=== PATIENT | male | born 1970 | race African-American/Black ===

== ENCOUNTER 2019-06-22 06:26 | Observation (INO) | payer BC ==
[2019-06-22] MEDS ORDERED: Nitroglycerin 0.4 MG TAB 1 EACH ONE (07:00)
[2019-06-22] MEDS ORDERED: Aspirin Chewable 81 MG TAB ONE (07:00)
[2019-06-22 07:01] LABS: #Basophils 0.1 thou/uL (0.0-0.2); #Eosinphils 0.2 thou/uL (0.0-0.7); #Lymphocytes 2.6 thou/uL (1.20-3.40); #Monocytes 0.5 thou/uL (0.11-0.59); %Basophils 0.8 % (0.0-1.0); %Eosinophils 2.6 % (0.0-10.0); %Lymphocytes 27.4 % (21.0-51.0); %Monocytes 5.1 % (0.0-10.0); %Neutrophils 64.1 % (42.0-75.0); Hemoglobin 15.1 g/dL (14.0-18.0); Mean Corpuscular HGB CONC 31.5 g/dL (32.0-36.0); Mean Corpuscular Hemoglobin 27.7 pg (27.0-31.0); Mean Platelet Volume 8.8 fL (7.4-10.4); Platelet Count 231 thou/uL (130-400); RBC Distribution Width 13.2 % (11.5-14.5); Red Blood Cell (RBC) Count 5.45 mill/uL (4.70-6.10); White Blood Cell (WBC) Count 9.4 thou/uL (4.8-10.8)
[2019-06-22 07:26] LABS: ALT (SGPT) 22 U/L (8-55); AST (SGOT) 22 U/L (5-34); Albumin 4.3 g/dL (3.5-5.0); Alkaline Phosphatase 64 U/L (40-150); Anion Gap 13 mmol/L (10-20); BUN (Urea Nitrogen) 10 mg/dL (8.9-20.6); Bilirubin, Total 0.7 mg/dL (0.2-1.2); Calc. Creatinine Clearance 0 mL/min (70-130); Calcium 9.8 mg/dL (7.8-10.44); Carbon Dioxide 26 mmol/L (22-29); Chloride 104 mmol/L (98-107); Estimated GFR-MDRD Greater than 90; Globulin 2.6 g/dL (2.4-3.5); Glucose 98 mg/dL (70-105); Lipase 10 U/L (8-78); Potassium 4.2 mmol/L (3.5-5.1); Protein, Total 6.9 g/dL (6.0-8.3); Sodium 139 mmol/L (136-145)
--- NOTE | 2019-06-22 07:37 | RAD ---
EXAM: Single view of the chest HISTORY: Chest pain and lightheadedness COMPARISON: 07/31/2015 FINDINGS: Single view of the chest shows a normal sized cardiomediastinal silhouette. There is no wanda dence of consolidation, mass, or pleural effusion. Degenerative changes are seen in the spine. IMPRESSION: No evidence of acute cardiopulmonary disease
--- NOTE | 2019-06-22 10:18 | CT ---
EXAM: CT brain without contrast HISTORY: Chest tightness and discomfort. Lightheadedness. COMPARISON: 07/31/2015 TECHNIQUE: Multiple contiguous axial images were obtained and a CT of the brain without contrast. FINDINGS: The brain is normal in morphology and attenuation without focal lesions or confluent areas of infarction. There is no evidence of hydrocephalus, intracranial hemorrhage, or extra-axial fluid collection. The calvarium and overlying soft tissues are unremarkable. The visualized paranasal sinuses and masto id air cells are well aerated. IMPRESSION: No evidence of acute intracranial abnormality
[2019-06-22 10:29] LABS: Troponin I Less than 0.010 ng/mL (< 0.028)
--- NOTE | 2019-06-22 12:20 | HP ---
HISTORY OF PRESENT ILLNESS: This is a 49-year-old black male with history of hypertension, who has been noncompliant. I last saw the patient in 2014 with hypertension, uncontrolled and has had several no shows during that time. Again, he was last seen in 2014. He presents to the ER with substernal chest pain. He states that he has had a cough for the past few months. He was on his way to work at 3:00 a.m. this morning and he developed chest pain, was not feeling well. He did not complain of any nausea, vomiting, or diaphoresis. He came to the emergency room. He was given nitroglycerin and his chest pain resolved. His cardiac workup in the ER was unremarkable. PAST MEDICAL HISTORY: History of chronic back pain, hypertension, history of a positive RPR, treated with penicillin. PAST SURGICAL HISTORY: Include a negative cardiac catheterization in 2009, negative stress test in 2013. FAMILY HISTORY: Father with diabetes. Mother with diabetes and heart disease. He has several siblings with heart disease. SOCIAL HISTORY: He is a nonsmoker. He works, I believe, at [employer]. MEDICATIONS: None. REVIEW OF SYSTEMS: As above. ALLERGIES: NONE. PHYSICAL EXAMINATION: VITAL SIGNS: Blood pressure 110/70. On admission, the blood pressure was elevated. GENERAL: No acute distress. HEENT: Clear. NECK: Supple. HEART: Regular rate and rhythm without murmur. LUNGS: Clear. ABDOMEN: Soft. EXTREMITIES: With no edema. LABORATORY DATA: White count 9.4, H and H of 15 and 47, and platelets 231,000. Sodium 139, potassium 4.2. Troponin one less than 0.010. ASSESSMENT: 1. Chest pain, rule out myocardial infarction. The patient does have a long history of hypertension, untreated. His last office visit in 2014 showed an elevated blood pressure. 2. Chest wall pain. The patient is markedly tender over the left costochondral area. 3. Chronic cough, possible bronchitis. Chest x-ray is negative. 4. Noncompliance. PLAN: 1. Admit. 2. Treadmill stress test and echo. 3. Serial cardiac enzymes. 4. Discussed the importance of close followup. ADDENDUM: I was just called from the ER, the patient had a possible near syncopal episode with an exacerbation of chest pain. We will consult Cardiology at this time. Job ID: [id number]
[2019-06-22 12:34] VITALS: BMI 32.1
[2019-06-22 13:21] LABS: Troponin I Less than 0.010 ng/mL (< 0.028)
[2019-06-22] MEDS: Nitroglycerin 2% Ointment 1 INCH/1 GM Packet TOP SCH ×2 (14:19→21:21)
[2019-06-22] MEDS: Enoxaparin Sodium 100 MG/ML SYRINGE SC SCH (14:22)
[2019-06-22] MEDS: Carvedilol 3.125 MG TAB PO SCH (16:10)
--- NOTE | 2019-06-22 19:57 | CON ---
DATE OF CONSULTATION: 06/22/2019 INDICATION FOR CONSULTATION: A 49-year-old gentleman with syncopal episode and chest pain. HISTORY OF PRESENT ILLNESS: This is a very pleasant 49-year-old gentleman, who underwent a cardiac catheterization apparently in 2010, did not have any significant coronary artery disease at that time and was also told that he might need a pacemaker. He was on his way to work this morning when he had a syncopal episode in his truck. He then woke up and not realized that he even had a syncopal episode , talked to his friend, wanted to go to work anyway, but was advised to go to the emergency room. He did complain of some chest discomfort and he said he had some left shoulder discomfort, became nauseated, and had some shortness of breath. His cardiac enzymes are negative. EKG is unremarkable for any evidence of significant ischemia, but he does have episodes on the telemetry of a Wenckebach phenomenon with non-conducted P waves of more than 2 seconds, but with his associated syncope this morning, this appears to be a somewhat more significant degree of AV block. His chest discomfort has essentially resolved. He does have some mild discomfort of the left chest area, which may be associated with the fall that he had this morning. Enzymes are negative as noted above. PAST MEDICAL HISTORY: Significant for some depression, anxiety, hypertension, and chronic back pain. He has a positive RPR, which was treated with insulin. He has degenerative joint disease associated in the back area. He has had a cyst on the spine. SOCIAL HISTORY: He said he is a . He has no children. He has occasional marijuana use. He has no significant alcohol use. At this time, he said he did drink a six pack a day, but stopped about 3 months ago. 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 MEDICATIONS: At this time include aspirin, Coreg, Lovenox, and nitroglycerin. Prior to admission, he was not taking any significant medications. ALLERGIES: NONE. REVIEW OF SYSTEMS: He wears glasses. Otherwise, 12-point review of systems is unremarkable except for the occasional cough. He has had the back pain as noted above and some history of anxiety. Otherwise, 12-point review of systems is unremarkable. PHYSICAL EXAMINATION: GENERAL: Reveals a well-developed and well-nourished gentleman. VITAL SIGNS: Blood pressure 122/71, heart rate is 60 and regular with occasional second-degree AV heart block type 1. He is afebrile. Respiratory rate is 18. HEENT: Shows head to be normocephalic and atraumatic. Carotid pulses are present. There are no bruits. CHEST: Clear to auscultation without rales, rhonchi, or wheezing. CARDIOVASCULAR: Exam reveals a regular rate and rhythm at this time with normal S1 and S2. There is no S3 or S4. There were no significant murmurs, heaves, thrills, bruits, or rubs. ABDOMEN: Soft and nontender. Positive bowel sounds are present. EXTREMITIES: Showed no clubbing, cyanosis, or edema. Pedal pulses are present. NEUROLOGIC: The patient appears to be intact at this time. DIAGNOSTIC DATA: EKG shows a normal sinus rhythm with no acute changes. Occasional episodes of secondary heart block type 1 with some associated bradycardia. LABORATORY DATA: Shows a potassium of 4.2, BUN is 10, and creatinine 0.89. WBC of 9.4, hemoglobin 15.1, and platelet count 231,000. Cardiac enzymes are negative. IMPRESSION: This gentleman, who has a history of hypertension and has also had an episode of syncope, has symptomatic second-degree heart block type 1 with associated syncope. We will advise him to undergo pacemaker insertion. He can undergo stress testing. I believe he has had some further workup in the past. He had a stress test in 2012, which did not show any evidence of ischemia. Ejection fraction was estimated at 71%. At this time, I would advise him to proceed with a pacemaker insertion to prevent further episodes of syncope. I explained to the patient the procedure and the risks to include bleeding, infection, possibility of pneumothorax, hemothorax, and pericardial tamponade and he has agreed to proceed with the procedure. We will plan for that today depending whether his last dose of Lovenox was given, I believe his last dose was he had a full dose at 9 o'clock this morning. We may need to wait until tomorrow morning for pacemaker insertion. As far as issues with his hypertension, that is stable at this time. Job ID: [id number] [facility]
[2019-06-23] MEDS: Nitroglycerin 2% Ointment 1 INCH/1 GM Packet TOP SCH ×3 (05:40→21:29)
[2019-06-23 05:50] LABS: Cardiac Risk 4.9 (Less than 4.5)
[2019-06-23] MEDS ORDERED: CEFAZOLIN 1 GM VIAL ONE (07:17)
[2019-06-23] MEDS ORDERED: Gentamicin 80 MG/2 ML VIAL ONE (07:17)
--- NOTE | 2019-06-23 07:33 | CON ---
DATE OF CONSULTATION: 06/23/2019 SUBJECTIVE: No complaints of further chest pain. He is feeling better this morning. OBJECTIVE: VITAL SIGNS: Temperature 98.6, pulse 62, respirations 14, pulse ox 99, blood pressure 121/73. HEART: Regular rate and rhythm. LUNGS: Clear. ABDOMEN: Soft. EXTREMITIES: No edema. LABORATORY DATA: Troponin less than 0.010 x3. Cholesterol 178, triglycerides 137, ratio 4.9. ASSESSMENT: 1. 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 2. Chest pain with probable syncope. 3. Noncompliance. 4. Hypertension. 5. Chronic cough, appears somewhat improved since the patient's hospitalization. We will continue to follow. PLAN: 1. Pacemaker placement for today. 2. Stress test per Dr. Voss. 3. We will continue to follow up. 4. Discussed importance of compliance in better blood pressure control. Job ID: [id number]
[2019-06-23] MEDS ORDERED: Midazolam HCl 2 mg/2 ml Vial ONE (08:38)
--- NOTE | 2019-06-23 09:41 | PDOC.CTH ---
Cardiology Progress Note - Subjective Pt. seen and eval. this AM. No c/o's. Still some episodes of 2 AV block type I. Bradycardia. Likely cause of syncope. - Objective Vital Signs Temp Pulse Resp BP Pulse Ox 06/23/19 07:30 98.1 F 72 20 146/74 H 99 06/23/19 05:51 98.6 F 62 14 121/73 99 06/22/19 23:24 98.2 F 68 15 111/76 97 Weight 199 lb 3 oz 06/22/19 06/23/19 06/24/19 06:59 06:59 06:59 Intake Total 1060 Output Total 400 Balance 660 - Physical Examination General/Neuro: alert & oriented x3 Neck: carotid US brisk, no JVD present Lungs: CTA Heart: RRR Abdomen: NT/ND, soft - Labs Result Diagrams: 06/22/19 06:52 06/22/19 06:53 Troponin/CKMB Troponin I Less than 0.010 ng/mL (< 0.028) 06/22/19 12:47 - Assessment/Plan 1. Syncope. Likely due to symptomatic bradycardia associated with 2AVB type I. Indication for pacemaker with this level of AV conduction abnormality and symptoms. I have discussed the procedure and risks. Plan for pacemaker insertion this AM. 2. HTN. Continue present meds. Echo: normal EF.
[2019-06-23] MEDS: Enoxaparin Sodium 100 MG/ML SYRINGE SC SCH ×2 (09:49→21:30)
[2019-06-23] MEDS: Carvedilol 3.125 MG TAB PO SCH ×2 (10:56→17:42)
[2019-06-23] MEDS: Aspirin 325 mg Enteric Coated Tablet PO SCH (10:56)
[2019-06-23] MEDS ORDERED: Iopamidol 370 76% 50 ML VIAL FS ONE (13:27)
--- NOTE | 2019-06-23 13:27 | RAD ---
SINGLE VIEW CHEST: Date: 06/23/19 COMPARISON: 06/22/19. HISTORY: Status post pacemaker placement. FINDINGS: Single view of the chest shows a normal sized cardiomediastinal silhouette. There is a left subclavia n pacemaker with its leads in the right atrium and ventricle. No pneumothorax is seen. There is no ev idence of consolidation, mass, or pleural effusion. IMPRESSION: Status post pacemaker placement without evidence of complication. POS: CET
--- NOTE | 2019-06-23 15:29 | EKG ---
Test Reason : POST PACEMAKER INSER Blood Pressure : / mmHG Vent. Rate : 068 BPM Atrial Rate : 068 BPM P-R Int : 216 ms QRS Dur : 078 ms QT Int : 364 ms P-R-T Axes : 040 002 011 degrees QTc Int : 387 ms Sinus rhythm with 1st degree A-V block ST elevation, consider early repolarization, pericarditis, or injury Nonspecific ST and T wave abnormality Abnormal ECG When compared with ECG of 22-JUN-2019 09:37, (Unconfirmed) Sinus rhythm is no longer with 2nd degree A-V block (Mobitz I) Confirmed by CECILIA PARRA, DR. Davis ([id number]) on 06/23/2019 3:28:58 PM Referred By: GEO Confirmed By:DR. Susan BROOKS MD
[2019-06-23] MEDS ORDERED: Losartan 25 MG TAB PO SCH (17:30)
[2019-06-24] MEDS: Nitroglycerin 2% Ointment 1 INCH/1 GM Packet TOP SCH (05:59)
[2019-06-24 08:24] VITALS: TEMP 98.3
[2019-06-24] MEDS: Carvedilol 3.125 MG TAB PO SCH (08:34)
[2019-06-24] MEDS: Aspirin 325 mg Enteric Coated Tablet PO SCH (08:34)
[2019-06-24] MEDS: Enoxaparin Sodium 100 MG/ML SYRINGE SC SCH (08:35)
[2019-06-24] MEDS ORDERED: Losartan 25 MG TAB PO SCH (09:00)
[2019-06-24 10:29] VITALS: BP 142/78
--- NOTE | 2019-06-24 14:37 | DIS ---
DATE OF ADMISSION: 06/22/2019 DATE OF DISCHARGE: 06/24/2019 DISCHARGE DIAGNOSES: 1. Chest pain with syncope. 2. Secondary atrioventricular block, type 1, consistent with Wenckebach. 3. Noncompliance. 4. Uncontrolled hypertension. 5. Chronic cough. DISCHARGE MEDICATIONS: 1. Levaquin 50 one p.o. daily, #10. 2. Losartan 510 one p.o. q.a.m., #30, two refills. 3. Coreg 3.125 one p.o. b.i.d., #60, two refills. BRIEF HISTORY: This is a 49-year-old black male with a long history of hypertension, untreated. He was last seen in the office in 2014. He presented with substernal chest pain to the ER. There was a question of him possibly passing out earlier that morning of admission. He also states he has had a cough for the past several months. He did not report any nausea, vomiting, or diaphoresis. He was given nitroglycerin in the ER with resolution of his chest pain. HOSPITAL COURSE: His heart was monitored over several days. Wenckebach type I block was noted. Dr. Voss was consulted. A pacemaker was placed. The patient has done well. His blood pressure has been rising somewhat high. He was started on Coreg and losartan and his blood pressure is markedly improved. He still has his cough, for which he will be given Levaquin to treat for possible community-acquired pneumonia. He is to follow up with Dr. Stone in 1 week, with myself in 1 week. We have talked at length about compliance with medications and poor prognosis. He does not control his blood pressure. We will continue to follow. He may need an outpatient stress test. Job ID: [id number]
--- NOTE | 2019-06-24 18:32 | CCL ---
CARDIOLOGY PROCEDURE NOTE: PROCEDURE: Dual chamber pacemaker insertion. INDICATION FOR PROCEDURE: 49-year-old gentleman with episode of syncope. He was found to have second degree heart block Type I with significant bradycardia, most likely associated with the syncope. Also had dizziness with the br adycardia. He was advised to undergo dual chamber pacemaker insertion. DETAILS: The patient was taken to the cardiac catheter lab, where he was prepped and draped in the sterile fas hion. Using a left subclavian approach, the pacemaker was easily inserted without difficulties or com plications. The full dictated note is in the chart. He was implanted with a Medtronic dual chamber pa cemaker, Vero MRI-compatible device, with two screw-in leads, one in the atrium and one in the ventr icle. Pacemaker was set with upper rate at 120 and lower rate at 60. There were no difficulties or co mplications encountered. Please review the dictated note.
== END 2019-06-24 09:41 | disposition home or self-care (01) ==
LOC: ERS 06:26 → 2SW 12:30
PROVIDERS: ADMIT Family Medicine; ATTEND Family Medicine
PROC: 0JH606Z Insertion of Pacemaker, Dual Chamber into Chest Subcutaneous Tissue and Fascia, Open Approach (ICD-10-PCS; principal; 2019-06-22)
DX: R55 Syncope and collapse (principal); R07.2 Precordial pain; I44.1 Atrioventricular block, second degree; I10 Essential (primary) hypertension; Z79.899 Other long term (current) drug therapy; Z91.19 Patient's noncompliance with other medical treatment and regimen
CPT/HCPCS: 33208; 36005; 36415; 70450; 71045; 75820; 80053; 80061; 83690; 84484; 85025; 93005; 93010; 93306; 93798; 94760; 96372; 99152; 99153; C1785; C1898; G0378; J0690; J1580; J1650; J2250; Q9967

== ENCOUNTER 2020-12-08 08:41 | Observation (INO) | payer SELFPAY ==
--- NOTE | 2020-12-08 09:09 | RAD ---
Portable frontal chest radiograph: 12/08/2020 COMPARISON: 06/23/2019 HISTORY: Chest pain, pacemaker malfunction FINDINGS: Stable left dual-lead transvenous pacing device. Heart and mediastinal contours are stable. No pneumothorax or pleural fluid is seen. There is no focal consolidation or alveolar edema. IMPRESSION: No acute findings.
[2020-12-08 09:12] LABS: #Basophils 0.1 thou/uL (0.0-0.2); #Eosinphils 0.3 thou/uL (0.0-0.7); #Lymphocytes 2.4 thou/uL (1.20-3.40); #Monocytes 0.5 thou/uL (0.11-0.59); %Basophils 1.8 % (0.0-1.0); %Eosinophils 3.9 % (0.0-10.0); %Lymphocytes 28.5 % (21.0-51.0); %Monocytes 5.8 % (0.0-10.0); %Neutrophils 60.1 % (42.0-75.0); Hemoglobin 14.8 g/dL (14.0-18.0); Mean Corpuscular HGB CONC 31.7 g/dL (32.0-36.0); Mean Corpuscular Volume 88.3 fL (78.0-98.0); Mean Platelet Volume 8.8 fL (7.4-10.4); Platelet Count 230 thou/uL (130-400); RBC Distribution Width 13.2 % (11.5-14.5); White Blood Cell (WBC) Count 8.3 thou/uL (4.8-10.8)
[2020-12-08 09:36] LABS: ALT (SGPT) 22 U/L (8-55); AST (SGOT) 22 U/L (5-34); Albumin 4.3 g/dL (3.5-5.0); Alkaline Phosphatase 66 U/L (40-110); Anion Gap 11 mmol/L (10-20); BUN (Urea Nitrogen) 10 mg/dL (8.9-20.6); Bilirubin, Total 0.2 mg/dL (0.2-1.2); CK (CPK) 291 U/L (30-200); Calc. Creatinine Clearance 0 mL/min (70-130); Calcium 9.3 mg/dL (7.8-10.44); Carbon Dioxide 31 mmol/L (22-29); Chloride 101 mmol/L (98-107); Globulin 3.1 g/dL (2.4-3.5); Glucose 130 mg/dL (70-105); Protein, Total 7.4 g/dL (6.0-8.3); Sodium 139 mmol/L (136-145)
--- NOTE | 2020-12-08 12:32 | HP ---
PRIMARY CARE PHYSICIAN: Kristopher Spencer MD CHIEF COMPLAINT: "My pacemaker alarm went off and I'm having chest pain." HISTORY OF PRESENT ILLNESS: Mr. Hunter is a pleasant 50-year-old gentleman, who has a history of hypertension. He also has history of having a syncopal episode, which led to him having a pacemaker placed. He was in his usual state of health until recently. He says in the last 3 to 4 weeks he has been having pain in his chest off and on. He describes it as tightness, which is more or less in the center to left side of his chest. He says it can happen either at rest or on exertion. He rates it about a 5/10 and says that it happened again this morning and has been actually present since 4:00 a.m. this morning and he notes some numbness in his left arm as well. He also notes that when he walks, he gets some shortness of breath as well. He also notes that he has been getting short of breath at night and at times will wake up gasping. Lately, he is having to sleep in a chair and says that if he tries to lay flat. He says that he is choking. He also notes some palpitations off and on as well and also this morning, he noted that his pacemaker alarm went off and he is not really sure what that alarm meant. But given these symptoms, he felt he should come to the ER for evaluation. He was seen in the ER and he had a chest x-ray done, which was essentially unremarkable as well as an EKG, which showed some nonspecific changes, but given his previous history, he is being placed in observation for further evaluation. The patient also denies any cough or congestion. He denies any reflux symptoms. He has not been on any long trips. He notes some numbness in his left leg and says that his left leg is at time weak, but he attributes that to back problems and this has been present for some time. REVIEW OF SYSTEMS: All systems were reviewed and are negative except for that mentioned in the History of Present Illness. PAST MEDICAL HISTORY: Significant for hypertension. He was diagnosed in 2010. He also has a history of syncope and second-degree AV block consistent with Wenckebach and has had a pacemaker placed. ALLERGIES: NO KNOWN DRUG ALLERGIES. SOCIAL HISTORY: He is a , but currently engaged. He has one stepdaughter. He never smoked. He denies any alcohol use, but does admit to smoking marijuana occasionally a few times a week, but then sometimes up to several months in between. 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 FAMILY HISTORY: Mother had hypertension. Brother had a defibrillator placed in his 40s. He is also diabetic. Father when he was very young. He does not know that history. Sister had cancer as well as hypertension and grandmother had dementia and hypertension and heart disease. CURRENT MEDICATIONS: He is on a blood pressure medicine as well as a baby aspirin a day. I do not have those dosages. PHYSICAL EXAMINATION: GENERAL: He is alert and oriented. He appears to be in no acute distress. He is well developed and well nourished. VITAL SIGNS: Blood pressure was 148/98, heart rate 74, respiratory rate of 16, and temperature was 98.7. HEENT: His pupils are equal and reactive; however, he did have some difficulty with extraocular muscles with accommodation and appeared to have some mild nystagmus. NECK: There is no elevation of the jugular venous distention. There are no bruits. LUNGS: Clear to auscultation. There are no wheezing, no rales, no rhonchi. CARDIOVASCULAR: He had a normal S1 and S2. I did not appreciate an S3 or S4. His PMI was in the 5th intercostal space midclavicular line. There are no murmurs, clicks, or rubs. ABDOMEN: Obese. It is soft, nontender, and nondistended. Bowel sounds are present. There is no evidence of any organomegaly. No rebound or guarding. EXTREMITIES: He had no calf edema. There is no calf tenderness. NEUROLOGIC: His muscle strength is 5/5 in right lower extremity, although it was slightly diminished on the left. He has palpable dorsalis pedis pulses bilaterally and he did have some hammertoe deformities and bunions. SKIN AND INTEGUMENT: There are no significant skin changes. No rash, although he did have some mycotic nails. LABORATORY DATA: Sodium is 139, potassium 4.0, chloride is 100, CO2 is 31, BUN of 10, creatinine 1.02, and glucose is 130. His white blood cell count is 8.3, hemoglobin 14.8, hematocrit is 46.8, and platelet count is 230. On his EKG and this is by my reading, it was sinus rhythm, the rate was 75. He had some nonspecific ST-wave changes. On chest x-ray, heart size is normal. He did have a poor inspiratory effort. His costophrenic angles are sharp. There is no evidence of any infiltrates and the pacemaker was noted. ASSESSMENT AND PLAN: 1. This is a pleasant 50-year-old gentleman, who presents with chest pain. The description of which was relatively atypical. It appears the pain comes both at rest and on exertion and there were no associated symptoms. However, he does have risk factors for coronary artery disease and that he is hypertensive and obese. For this reason, he will be placed in observation and we will get a nuclear stress test. 2. Dyspnea. He gives some symptoms, which could be attributable to heart failure. For this reason, we will go ahead and get an echocardiogram to assess his ejection fraction. 3. We will have his pacemaker interrogated. Given the symptoms of palpitations and his alarm going off and we will also consult his boat joiner helper, Dr. Voss for further evaluation. We will also throw in a D-dimer since this was not done in the ER and his pain was somewhat atypical. 4. Hypertension. We will need to reconcile and restart his medications and place him on p.r.n. medicines as needed. 5. He will be placed on deep venous thrombosis and gastrointestinal prophylaxis. Job ID: [id number]
[2020-12-08 13:05] LABS: Troponin I Less than 0.010 ng/mL (< 0.028)
[2020-12-08] MEDS ORDERED: Aspirin 325 MG TAB PO SCH (13:44)
[2020-12-08] MEDS ORDERED: Nitroglycerin 0.4 MG TAB (25 Tab Bottle) SL PRN (13:44)
[2020-12-08] MEDS ORDERED: Acetaminophen 325 MG TAB PO PRN (13:44)
[2020-12-08 13:47] VITALS: BMI 32.8
[2020-12-08 14:13] LABS: Hemoglobin A1c 6.1 % (4.0-6.0)
[2020-12-08] MEDS: Nitroglycerin 2% Ointment 1 INCH/1 GM Packet TOP SCH ×2 (14:16→21:32)
[2020-12-08 15:01] LABS: Troponin I Less than 0.010 ng/mL (< 0.028)
[2020-12-08] MEDS: Famotidine 20 MG TAB PO SCH (21:31)
[2020-12-09 04:44] LABS: #Basophils 0.1 thou/uL (0.0-0.2); #Eosinphils 0.3 thou/uL (0.0-0.7); #Lymphocytes 3.3 thou/uL (1.20-3.40); #Monocytes 0.6 thou/uL (0.11-0.59); #Neutrophils 5.5 thou/uL (1.40-6.50); %Basophils 0.7 % (0.0-1.0); %Lymphocytes 33.5 % (21.0-51.0); %Monocytes 6.2 % (0.0-10.0); %Neutrophils 56.6 % (42.0-75.0); Hemoglobin 13.5 g/dL (14.0-18.0); Mean Corpuscular HGB CONC 31.1 g/dL (32.0-36.0); Mean Corpuscular Hemoglobin 27.4 pg (27.0-31.0); Mean Corpuscular Volume 88.3 fL (78.0-98.0); Mean Platelet Volume 8.9 fL (7.4-10.4); Platelet Count 237 thou/uL (130-400); RBC Distribution Width 13.4 % (11.5-14.5); Red Blood Cell (RBC) Count 4.91 mill/uL (4.70-6.10); White Blood Cell (WBC) Count 9.7 thou/uL (4.8-10.8)
[2020-12-09 05:09] LABS: Anion Gap 11 mmol/L (10-20); BUN (Urea Nitrogen) 12 mg/dL (8.9-20.6); Calc. Creatinine Clearance 129 mL/min (70-130); Calcium 8.9 mg/dL (7.8-10.44); Carbon Dioxide 29 mmol/L (22-29); Cardiac Risk 4.8 (Less than 4.5); Chloride 103 mmol/L (98-107); Cholesterol 201 mg/dl (< 200 Desired); Glucose 93 mg/dL (70-105); HDL Cholesterol 42 mg/dL (>60 Neg Risk); LDL Cholesterol, Calculated 133 mg/dL; Potassium 4.1 mmol/L (3.5-5.1); Sodium 139 mmol/L (136-145); Triglycerides 128 mg/dL (Less than 150)
[2020-12-09] MEDS: Nitroglycerin 2% Ointment 1 INCH/1 GM Packet TOP SCH ×2 (07:40→14:25)
[2020-12-09] MEDS ORDERED: Carvedilol 3.125 MG TAB PO SCH (08:00)
[2020-12-09] MEDS ORDERED: Enoxaparin Sodium 40 MG/0.4 ML SYRINGE SC SCH (09:00)
[2020-12-09] MEDS ORDERED: Losartan 25 MG TAB PO SCH (09:00)
[2020-12-09] MEDS: Famotidine 20 MG TAB PO SCH (10:44)
--- NOTE | 2020-12-09 11:32 | NM ---
Nuclear medicine myocardial perfusion scan: 12/09/2020 HISTORY: Chest pain with hypertension and dyspnea TECHNIQUE: SPECT imaging of the left ventricular myocardium obtained during rest and stress following the intravenous administration of 9.0 and 27.5 mCi technetium 99m labeled sestamibi respectively FINDINGS: Left ventricular wall motion appears unremarkable. No reversible defect is evident. Left ve ntricular ejection fraction is estimated at 57%. EDV 107 mL and ESV 46 mL. TID 1.28. IMPRESSION: No reversible defect. Normal left ventricular wall motion and ejection fraction estimatio n.
[2020-12-09] MEDS ORDERED: ADENOSINE 60 MG/20 ML VIAL ONE (12:55)
--- NOTE | 2020-12-09 14:18 | PDOC.DS.DS ---
Provider - Provider Date of Admission: 12/08/20 10:51 Date of Discharge: 12/09/20 Admitting Provider: Kristopher Cast MD Course - Hospital Course Hospital Course: 50 year-old gentleman with a history of hypertension, history of syncopal episode secondary to second-degree AV block-Wenckebach, status post pacemaker presented to the emergency department with a complaint of some chest tightness and also an alarm his compliance monitor going off. Patient denied any shortness of breath. His initial troponin in the ED was negative. EKG demonstrated normal sinus rhythm. Checks x-ray was unremarkable. Given patient significant history of cardiac arrhythmia, patient was placed on observation for chest pain rule out and monitoring. Patient was placed under observation in telemetry. Troponin trended came back negative. Nuclear stress test was performed which shows normal and did not show any stress-induced ischemia. EF also reported as normal. library monitor was reviewed and noted occasionally paced rhythm otherwise normal sinus rhythm, no significant arrhythmia noted. Patient was asymptomatic during the hospital stay. ACS has been ruled out. His pacemaker was interrogated and did not show any event. Patient is discharged with his usual home medications. He has a compliance monitor at home and can continue monitoring for arrhythmia. He is informed to follow-up with his hogshead salvage as soon as possible. Resuscitation Status: 12/08/20 11:48 Resuscitation Status Routine Resuscitation Status: FULL: Full Resuscitation - Labs Lab Results: 12/09/20 04:16 12/09/20 04:16 Abnormal Lab Results - Last 48 hrs 12/08/20 09:02: MCHC 31.7 L, Basophils % 1.8 H 12/08/20 09:02: Carbon Dioxide 31 H, Creatine Kinase 291 H 12/08/20 13:59: Hemoglobin A1c 6.1 H 12/09/20 04:16: Cholesterol 201 H 12/09/20 04:16: Hgb 13.5 L, MCHC 31.1 L, Monocytes # 0.6 H - Physical Exam Vitals: Vital Signs (12 hours) Temp Pulse Resp BP BP Pulse Ox 12/09/20 11:45 98.5 F 74 14 120/71 99 12/09/20 08:00 98.1 F 67 14 128/71 100 12/09/20 04:00 97.9 F 64 16 125/73 98 Weight Weight 203 lb Physical Exam: The patient was seen and examined on the day of discharge. Problem - Problem (1) Chest pain Code(s): R07.9 - CHEST PAIN, UNSPECIFIED Status: Acute (2) Cardiac pacemaker in situ Code(s): Z95.0 - PRESENCE OF CARDIAC PACEMAKER Status: Acute (3) Hypertension Code(s): I10 - ESSENTIAL (PRIMARY) HYPERTENSION Status: Acute Plan - Discharge Medications Prescriptions: Nitroglycerin [Nitrostat] 0.4 mg SL Q5MIN PRN #20 tab MDD 3 PRN Reason: Chest Pain Home Medications: Medication Instructions Recorded Confirmed Type Carvedilol [Coreg] 3.125 mg PO BID-WM tab 06/23/19 12/08/20 Rx Aspirin [Ecotrin Regular Strength] 325 mg PO DAILY tab 06/24/19 12/08/20 Rx Losartan [Cozaar] 50 mg PO DAILY #30 tab 06/24/19 12/08/20 Rx Nitroglycerin [Nitrostat] 0.4 mg SL Q5MIN PRN #20 tab MDD 3 12/09/20 Rx Allergies: No Known Allergies Allergy (Verified 12/08/20 13:47) per pt - Discharge Instructions Activity:: Activity as Tolerated Nourishment:: Heart Healthy Diet - Follow up Plan Referrals: Kristopher Spencer Jr, MD [Active] - 7 Days (Please call to schedule a follow up appointment.) King Voss MD [Active] - (Please call office to schedule a follow up appointment within 1 to 2 weeks to have your pacemaker reviewed.) Disposition: HOME Quality - Care Measures CORE MEASURES:: N/A
[2020-12-09] MEDS ORDERED: FLU VACC QS2020-21(6MOS UP)/PF 60 MCG/0.5 ML SYRINGE IM ONE (14:30)
[2020-12-09 15:58] VITALS: BP 138/74; TEMP 98.6
[2020-12-09 21:52] LABS: SARS-CoV-2 PCR NAA for Saliva Not Detected (NotDetected)
== END 2020-12-09 15:58 | disposition home or self-care (01) ==
LOC: ERS 08:41 → 2NO 10:51
PROVIDERS: ADMIT Internal Medicine; ATTEND Internal Medicine
DX: R07.89 Other chest pain (principal); I10 Essential (primary) hypertension; I44.1 Atrioventricular block, second degree; R06.00 Dyspnea, unspecified; F12.10 Cannabis abuse, uncomplicated; Z79.82 Long term (current) use of aspirin; Z79.899 Other long term (current) drug therapy; Z20.822 Contact with and (suspected) exposure to COVID-19; Z95.0 Presence of cardiac pacemaker
CPT/HCPCS: 36415; 71045; 78452; 80048; 80053; 80061; 82550; 83036; 84484; 85025; 87635; 93005; 93017; 93306; 94760; 96372; A9500; G0378; J0153; J1650; U0003; U0005

== ENCOUNTER 2021-08-29 12:17 | Observation (INO) | payer OTHER ==
[2021-08-29 12:36] LABS: #Basophils 0.1 thou/uL (0.0-0.2); #Eosinphils 0.3 thou/uL (0.0-0.7); #Lymphocytes 2.4 thou/uL (1.20-3.40); #Monocytes 0.7 thou/uL (0.11-0.59); #Neutrophils 4.7 thou/uL (1.40-6.50); %Basophils 0.7 % (0.0-1.0); %Eosinophils 4.1 % (0.0-10.0); %Lymphocytes 29.7 % (21.0-51.0); %Monocytes 7.9 % (0.0-10.0); %Neutrophils 57.5 % (42.0-75.0); Hemoglobin 13.8 g/dL (14.0-18.0); Mean Corpuscular HGB CONC 32.4 g/dL (32.0-36.0); Mean Corpuscular Hemoglobin 28.3 pg (27.0-31.0); Mean Corpuscular Volume 87.4 fL (78.0-98.0); Mean Platelet Volume 8.6 fL (7.4-10.4); Platelet Count 231 thou/uL (130-400); RBC Distribution Width 13.5 % (11.5-14.5); Red Blood Cell (RBC) Count 4.88 mill/uL (4.70-6.10); White Blood Cell (WBC) Count 8.2 thou/uL (4.8-10.8)
[2021-08-29 12:38] LABS: MDiff Complete? YES
[2021-08-29 12:51] LABS: PTT 37.1 sec (22.9-36.1); Prothrombin Time 13.5 sec (12.0-14.7)
[2021-08-29] MEDS ORDERED: Aspirin Chewable 81 MG TAB ONE (12:59)
[2021-08-29 13:01] LABS: ALT (SGPT) 18 U/L (8-55); AST (SGOT) 17 U/L (5-34); Alkaline Phosphatase 62 U/L (40-110); Anion Gap 11 mmol/L (10-20); BUN (Urea Nitrogen) 10 mg/dL (8.9-20.6); Bilirubin, Total 0.4 mg/dL (0.2-1.2); CK (CPK) 337 U/L (30-200); Calc. Creatinine Clearance 0 mL/min (70-130); Calcium 9.3 mg/dL (7.8-10.44); Carbon Dioxide 27 mmol/L (22-29); Chloride 104 mmol/L (98-107); Globulin 2.7 g/dL (2.4-3.5); Glucose 92 mg/dL (70-105); Potassium 4.4 mmol/L (3.5-5.1); Protein, Total 6.7 g/dL (6.0-8.3); Sodium 138 mmol/L (136-145)
[2021-08-29] MEDS ORDERED: Iopamidol-370 76% 500 ML 1 ML ONE (14:47)
[2021-08-29 15:25] LABS: SARS-CoV-2 NAA Rapid Test Not Detected (NotDetected)
== END 2021-08-29 14:57 | disposition left against medical advice (07) ==
LOC: ERS 12:17 → ERHOLD 13:32
PROVIDERS: ADMIT Family Medicine; ATTEND Family Medicine
DX: G45.9 Transient cerebral ischemic attack, unspecified (principal); I10 Essential (primary) hypertension; Z53.29 Procedure and treatment not carried out because of patient's decision for other reasons; Z20.822 Contact with and (suspected) exposure to COVID-19; Z95.0 Presence of cardiac pacemaker; Z86.73 Personal history of transient ischemic attack (TIA), and cerebral infarction without residual deficits
CPT/HCPCS: 36416; 70450; 70496; 70498; 80053; 82550; 83605; 84484; 85025; 85610; 85730; 93005; 94760; G0378; Q9967; U0002

== ENCOUNTER 2021-11-06 05:18 | Emergency (ER) | payer BC ==
[2021-11-06] MEDS ORDERED: Ketorolac Tromethamine 30 MG/ML VIAL ONE (06:14)
== END 2021-11-06 06:20 | disposition home or self-care (01) ==
LOC: ERS 05:18
DX: M25.511 Pain in right shoulder (principal); I10 Essential (primary) hypertension; Z86.73 Personal history of transient ischemic attack (TIA), and cerebral infarction without residual deficits; Z79.82 Long term (current) use of aspirin; Z79.899 Other long term (current) drug therapy
CPT/HCPCS: J1885

== ENCOUNTER 2021-11-24 23:25 | Emergency (ER) | payer SELFPAY, BC ==
[2021-11-25] MEDS ORDERED: Ketorolac Tromethamine 30 MG/ML VIAL ONE (01:14)
== END 2021-11-25 01:34 | disposition home or self-care (01) ==
LOC: ERS 23:25
DX: M54.50 Low back pain, unspecified (principal); I10 Essential (primary) hypertension; Z86.73 Personal history of transient ischemic attack (TIA), and cerebral infarction without residual deficits; Z79.82 Long term (current) use of aspirin
CPT/HCPCS: 96372; 99283; J1885

== ENCOUNTER 2022-02-17 23:55 | Observation (INO) | payer BC ==
[2022-02-18 00:37] LABS: Hemoglobin 14.2 g/dL (14.0-18.0); Mean Corpuscular Volume 90.3 fL (78.0-98.0); Mean Platelet Volume 8.3 fL (7.4-10.4); Platelet Count 292 thou/uL (130-400); RBC Distribution Width 13.7 % (11.5-14.5); Red Blood Cell (RBC) Count 5.08 mill/uL (4.70-6.10); White Blood Cell (WBC) Count 10.9 thou/uL (4.8-10.8)
[2022-02-18] MEDS ORDERED: Aspirin Chewable 81 MG TAB ONE ×2 (00:54→09:54)
[2022-02-18 00:55] LABS: Eosinophils 1 % (0-10); Lymphocytes 26 % (21-51); MDiff Complete? YES; Metamyelocyte 1 % (0-0); Monocytes 6 % (0-10); Neutrophil 66 % (42-75); Platelet Morphology Comment Appears Adequate; RBC Morphology Normal
[2022-02-18 00:58] LABS: ALT (SGPT) 21 U/L (8-55); AST (SGOT) 23 U/L (5-34); Albumin 4.2 g/dL (3.5-5.0); Alkaline Phosphatase 66 U/L (40-110); Anion Gap 11 mmol/L (10-20); BUN (Urea Nitrogen) 13 mg/dL (8.4-25.7); Bilirubin, Total 0.3 mg/dL (0.2-1.2); Calc. Creatinine Clearance 0 mL/min (70-130); Calcium 9.3 mg/dL (7.8-10.44); Carbon Dioxide 27 mmol/L (22-29); Chloride 100 mmol/L (98-107); Globulin 3.4 g/dL (2.4-3.5); Glucose 107 mg/dL (70-105); Potassium 3.8 mmol/L (3.5-5.1); Protein, Total 7.6 g/dL (6.0-8.3); Sodium 134 mmol/L (136-145)
[2022-02-18] MEDS ORDERED: Ondansetron PF 4 MG/2 ML Vial IVP PRN (01:38)
[2022-02-18] MEDS ORDERED: Acetaminophen 325 MG TAB PO PRN (01:38)
[2022-02-18 04:25] LABS: #Basophils 0.1 thou/uL (0.0-0.2); #Eosinphils 0.4 thou/uL (0.0-0.7); #Lymphocytes 3.4 thou/uL (1.20-3.40); #Monocytes 0.7 thou/uL (0.11-0.59); #Neutrophils 5.4 thou/uL (1.40-6.50); %Basophils 0.7 % (0.0-1.0); %Eosinophils 4.1 % (0.0-10.0); %Lymphocytes 34.1 % (21.0-51.0); %Monocytes 6.8 % (0.0-10.0); %Neutrophils 54.4 % (42.0-75.0); Hemoglobin 14.3 g/dL (14.0-18.0); Mean Corpuscular HGB CONC 32.5 g/dL (32.0-36.0); Mean Corpuscular Hemoglobin 29.5 pg (27.0-31.0); Mean Corpuscular Volume 90.8 fL (78.0-98.0); Mean Platelet Volume 8.2 fL (7.4-10.4); Platelet Count 263 thou/uL (130-400); RBC Distribution Width 13.5 % (11.5-14.5); Red Blood Cell (RBC) Count 4.84 mill/uL (4.70-6.10); White Blood Cell (WBC) Count 9.9 thou/uL (4.8-10.8)
[2022-02-18] MEDS ORDERED: Acetaminophen 325 MG TAB ONE (04:26)
[2022-02-18 04:51] LABS: Anion Gap 11 mmol/L (10-20); BUN (Urea Nitrogen) 11 mg/dL (8.4-25.7); Calc. Creatinine Clearance 0 mL/min (70-130); Calcium 9.3 mg/dL (7.8-10.44); Carbon Dioxide 29 mmol/L (22-29); Cardiac Risk 4.3 (Less than 4.5); Chloride 102 mmol/L (98-107); Cholesterol 166 mg/dl (< 200 Desired); Glucose 98 mg/dL (70-105); HDL Cholesterol 39 mg/dL (>60 Neg Risk); LDL Cholesterol, Calculated 110 mg/dL; Potassium 3.8 mmol/L (3.5-5.1); Sodium 138 mmol/L (136-145); Triglycerides 86 mg/dL (Less than 150)
[2022-02-18] MEDS ORDERED: Enoxaparin Sodium 40 MG/0.4 ML SYRINGE SC SCH (09:00)
[2022-02-18] MEDS ORDERED: Aspirin 81 mg Enteric Coated Tablet PO SCH (09:30)
[2022-02-18] MEDS ORDERED: HYDROcodone/Acetaminophen 10/325 mg Tablet PO PRN (09:38)
[2022-02-18] MEDS ORDERED: Enoxaparin Sodium 40 MG/0.4 ML SYRINGE ONE (09:54)
[2022-02-18] MEDS ORDERED: HYDROcodone/Acetaminophen 10/325 mg Tablet ONE (09:54)
[2022-02-18 16:01] LABS: SARS-CoV-2 PCR by NAA Not Detected (NotDetected)
[2022-02-18] MEDS ORDERED: Carvedilol 3.125 MG TAB PO SCH (17:00)
[2022-02-18] MEDS ORDERED: Atorvastatin Calcium 40 MG TAB PO SCH (21:00)
[2022-02-19] MEDS ORDERED: Losartan 25 MG TAB PO SCH (09:00)
[2022-02-19] MEDS ORDERED: Aspirin 81 mg Enteric Coated Tablet PO SCH (09:00)
[2022-02-19] MEDS ORDERED: Aspirin 325 mg Enteric Coated Tablet PO SCH (09:00)
== END 2022-02-18 11:35 | disposition left against medical advice (07) ==
LOC: ERS 23:55 → ERHOLD 02-18 01:32
PROVIDERS: ADMIT Internal Medicine; ATTEND Internal Medicine
DX: R53.1 Weakness (principal); R47.81 Slurred speech; R20.2 Paresthesia of skin; I11.0 Hypertensive heart disease with heart failure; I50.32 Chronic diastolic (congestive) heart failure; G89.29 Other chronic pain; M54.9 Dorsalgia, unspecified; I44.1 Atrioventricular block, second degree; F12.10 Cannabis abuse, uncomplicated; Z86.73 Personal history of transient ischemic attack (TIA), and cerebral infarction without residual deficits; Z79.82 Long term (current) use of aspirin; Z79.899 Other long term (current) drug therapy; Z95.0 Presence of cardiac pacemaker; Z20.822 Contact with and (suspected) exposure to COVID-19; Z53.29 Procedure and treatment not carried out because of patient's decision for other reasons
CPT/HCPCS: 36415; 70450; 70551; 71045; 80053; 80061; 84484; 85025; 93005; G0378; J1650; U0003; U0005

== ENCOUNTER 2022-04-17 09:17 | Outpatient (CLI) | payer BC | END 2022-04-17 09:18 | disposition home or self-care (01) | LOC: MRI 09:17 | PROVIDERS: ATTEND Neurological Surgery | DX: M51.16 Intervertebral disc disorders with radiculopathy, lumbar region (principal); M51.17 Intervertebral disc disorders with radiculopathy, lumbosacral region; M48.061 Spinal stenosis, lumbar region without neurogenic claudication | CPT/HCPCS: 72148 ==

== ENCOUNTER 2022-07-02 08:57 | Outpatient (CLI) | payer BC ==
[2022-07-02 10:41] LABS: Hemoglobin 14.8 g/dL (13.5-17.5); Mean Corpuscular HGB CONC 32.2 g/dL (32.0-36.0); Mean Platelet Volume 11.5 fl (7.4-10.4); Platelet Count 242 10x3/uL (150-450); RBC Distribution Width 14.6 % (11.5-14.5); Red Blood Cell (RBC) Count 5.29 10x6/uL (4.32-5.72); White Blood Cell (WBC) Count 9.1 10x3/uL (3.5-10.5)
[2022-07-02 10:53] LABS: PTT 31.5 sec (22.0-33.0); Prothrombin Time 11.1 sec (9.5-12.1)
[2022-07-02 10:57] LABS: Anion Gap 14 mmol/L (10-20); BUN (Urea Nitrogen) 13 mg/dL (8.4-25.7); Calc. Creatinine Clearance 0 mL/min (70-130); Calcium 9.7 mg/dL (7.8-10.44); Carbon Dioxide 29 mmol/L (22-29); Chloride 103 mmol/L (98-107); Estimated GFR 98; Glucose 94 mg/dL (70-105); Potassium 4.5 mmol/L (3.5-5.1); Sodium 141 mmol/L (136-145)
== END 2022-07-02 08:58 | disposition home or self-care (01) ==
LOC: LABBT 08:57
PROVIDERS: ATTEND Neurological Surgery
DX: Z01.812 Encounter for preprocedural laboratory examination (principal); Z20.822 Contact with and (suspected) exposure to COVID-19
CPT/HCPCS: 80048; 85027; 85610; 85730; 87811

== ENCOUNTER 2022-07-04 10:05 | Day surgery (SDC) | payer BC ==
[2022-07-03 10:40] VITALS: BMI 32.9
[2022-07-04] MEDS ORDERED: Bupivacaine PF 0.5% 30 ML VIAL ONE (10:28)
[2022-07-04] MEDS ORDERED: EPINEPHrine 1 MG/ML AMP ONE (10:28)
[2022-07-04] MEDS ORDERED: Thrombin 5000 UNITS/5 ML VIAL ONE (10:28)
[2022-07-04] MEDS ORDERED: Neomycin-Polymyxin 1 ML AMP ONE (10:28)
[2022-07-04] MEDS ORDERED: Sodium Chloride 0.9% 100 ML ONE (11:19)
[2022-07-04] MEDS ORDERED: CEFAZOLIN 2 GM VIAL ONE (11:19)
[2022-07-04] MEDS ORDERED: SUGAMMADEX SODIUM 200 MG/2 ML VIAL ONE (11:49)
[2022-07-04] MEDS ORDERED: fentaNYL Citrate/PF 100 MCG/2 ML SYRINGE ONE ×2 (11:49→14:23)
[2022-07-04] MEDS ORDERED: Famotidine/PF 20 mg/2ml Vial ONE (11:50)
[2022-07-04] MEDS ORDERED: Rocuronium Bromide 10 MG/ML (10ML VIAL) ONE (12:11)
[2022-07-04] MEDS ORDERED: Lidocaine 1% PF 5 ML VIAL ONE (12:11)
[2022-07-04] MEDS ORDERED: Dexamethasone 20 MG/5 ML VIAL ONE (12:11)
[2022-07-04] MEDS ORDERED: Ondansetron PF 4 MG/2 ML Vial ONE (12:11)
[2022-07-04] MEDS ORDERED: Ketorolac Tromethamine 30 MG/ML VIAL ONE (12:11)
[2022-07-04] MEDS ORDERED: Neostigmine Methylsulfate 3 MG/3 ML SYRINGE ONE (12:11)
[2022-07-04] MEDS ORDERED: Phenylephrine 10 MG/ML VIAL ONE (12:11)
[2022-07-04] MEDS ORDERED: Glycopyrrolate 0.2 MG/ML 5 ML SYRINGE ONE (12:11)
[2022-07-04] MEDS ORDERED: Metoclopramide HCl 10 MG/2 ML VIAL ONE (12:11)
[2022-07-04] MEDS ORDERED: PROPOFOL 200 MG/20 ML VIAL ONE (12:11)
[2022-07-04] MEDS ORDERED: HYDROcodone/Acetaminophen 5/325 mg Tablet ONE (17:35)
== END 2022-07-04 18:03 | disposition home or self-care (01) ==
LOC: SDC 10:05
PROVIDERS: ATTEND Neurological Surgery
PROC: 0SB20ZZ Excision of Lumbar Vertebral Disc, Open Approach (ICD-10-PCS; principal; 2022-07-04)
PROC: 01NB0ZZ Release Lumbar Nerve, Open Approach (ICD-10-PCS; principal; 2022-07-04)
DX: M51.16 Intervertebral disc disorders with radiculopathy, lumbar region (principal); M48.061 Spinal stenosis, lumbar region without neurogenic claudication; I11.9 Hypertensive heart disease without heart failure; I44.0 Atrioventricular block, first degree; Z79.82 Long term (current) use of aspirin; Z79.899 Other long term (current) drug therapy; Z95.0 Presence of cardiac pacemaker
CPT/HCPCS: 76000; J0171; J0690; J1100; J1885; J2370; J2405; J2704; J2765; J3370; J3490; S0020; S0028

== ENCOUNTER 2023-12-18 04:50 | Observation (INO) | payer BC ==
[2023-12-18] MEDS ORDERED: Nitroglycerin 2% Ointment 1 INCH/1 GM Packet ONE (05:34)
[2023-12-18] MEDS ORDERED: Aspirin Chewable 81 MG TAB ONE (05:35)
[2023-12-18 05:59] LABS: #Eosinphils 0.3 thou/uL (0.0-0.7); #Monocytes 0.5 thou/uL (0.11-0.59); #Neutrophils 5.4 thou/uL (1.40-6.50); %Basophils 0.3 % (0.0-1.0); %Eosinophils 3.6 % (0.0-10.0); %Lymphocytes 31.3 % (21.0-51.0); %Monocytes 5.3 % (0.0-10.0); %Neutrophils 59.3 % (42.0-75.0); Hematocrit 45.1 % (42.0-52.0); Hemoglobin 14.5 g/dL (14.0-18.0); Mean Corpuscular HGB CONC 32.2 g/dL (32.0-36.0); Mean Corpuscular Hemoglobin 28.1 pg (27.0-31.0); Mean Corpuscular Volume 87.4 fl (78.0-98.0); Mean Platelet Volume 11.5 fL (7.4-10.4); Platelet Count 213 10x3/uL (130-400); RBC Distribution Width 14.6 % (11.5-14.5); Red Blood Cell (RBC) Count 5.16 mill/uL (4.70-6.10); White Blood Cell (WBC) Count 9.2 10x3/uL (4.8-10.8)
[2023-12-18 06:28] LABS: ALT (SGPT) 28 U/L (8-55); AST (SGOT) 23 U/L (5-34); Albumin 4.3 g/dL (3.5-5.0); Alkaline Phosphatase 61 U/L (40-110); Anion Gap 12 mmol/L (10-20); BUN (Urea Nitrogen) 10 mg/dL (8.4-25.7); Bilirubin, Total 0.7 mg/dL (0.2-1.2); Calc. Creatinine Clearance 0 mL/min (70-130); Calcium 9.7 mg/dL (7.8-10.44); Carbon Dioxide 29 mmol/L (22-29); Chloride 101 mmol/L (98-107); Estimated GFR 94; Globulin 3.1 g/dL (2.4-3.5); Glucose 99 mg/dL (70-105); Potassium 4.2 mmol/L (3.5-5.1); Protein, Total 7.4 g/dL (6.0-8.3); Sodium 138 mmol/L (136-145)
[2023-12-18 06:31] LABS: Troponin I Less than 0.010 ng/mL (< 0.028)
[2023-12-18] MEDS ORDERED: Morphine 4 MG/ML VIAL ONE (07:09)
[2023-12-18] MEDS ORDERED: Ondansetron PF 4 MG/2 ML Vial IVP PRN (08:21)
[2023-12-18] MEDS ORDERED: Acetaminophen 325 MG TAB PO PRN (08:21)
[2023-12-18] MEDS ORDERED: Ondansetron ODT 4 MG TAB PO PRN (08:21)
[2023-12-18 08:22] LABS: Troponin I Less than 0.010 ng/mL (< 0.028)
[2023-12-18] MEDS: Famotidine 20 MG TAB PO SCH ×2 (09:55→20:51)
[2023-12-18] MEDS: Enoxaparin 40 MG (0.4 mL) SYRINGE SC SCH (09:55)
[2023-12-18] MEDS ORDERED: Famotidine 20 MG TAB ONE (09:56)
[2023-12-18] MEDS ORDERED: Enoxaparin 40 MG (0.4 mL) SYRINGE ONE (09:57)
[2023-12-18 11:22] LABS: Troponin I Less than 0.010 ng/mL (< 0.028)
[2023-12-18 13:32] VITALS: BMI 31.8
[2023-12-18] MEDS: Carvedilol 6.25 MG TAB PO SCH (16:20)
[2023-12-19] MEDS: Famotidine 20 MG TAB PO SCH (07:54)
[2023-12-19] MEDS: Enoxaparin 40 MG (0.4 mL) SYRINGE SC SCH (07:55)
[2023-12-19] MEDS: Carvedilol 6.25 MG TAB PO SCH (07:55)
[2023-12-19] MEDS ORDERED: Regadenoson 0.4 MG/5 ML SYRINGE ONE (08:40)
[2023-12-19] MEDS ORDERED: Losartan 25 MG TAB PO SCH (09:00)
[2023-12-19] MEDS ORDERED: Aspirin Chewable 81 MG TAB PO SCH (09:00)
[2023-12-19] MEDS: Nitroglycerin 0.4 MG TAB (25 Tab Bottle) SL PRN ×3 (10:12→10:35)
[2023-12-19] MEDS ORDERED: ALPRAZolam 0.25 MG TAB PO PRN (10:14)
[2023-12-19] MEDS ORDERED: Morphine 2 MG/ML VIAL SLOW IVP SCH (11:00)
[2023-12-19 12:08] LABS: Troponin I Less than 0.010 ng/mL (< 0.028)
[2023-12-19 14:38] LABS: Troponin I Less than 0.010 ng/mL (< 0.028)
[2023-12-19 15:12] LABS: Amphetamine Not Detected (NotDetected); Barbiturates Screen Not Detected (NotDetected); Benzodiazepine Screen Not Detected (NotDetected); Cocaine Metabolite Screen Not Detected (NotDetected); Methadone Not Detected (NotDetected); Methamphetamine Not Detected (NotDetected); Opiate Screen Not Detected (NotDetected); Oxycodone Screen Not Detected (NotDetected); Phencyclidine (PCP) Not Detected (NotDetected); THC/Cannabinoid Screen Not Detected (NotDetected); Tricyclic Screen Not Detected (NotDetected)
[2023-12-19 16:07] VITALS: BP 114/68; TEMP 97.9
== END 2023-12-19 17:38 | disposition home or self-care (01) ==
LOC: ERS 04:50 → ERHOLD 07:25 → 2SW 13:55
PROVIDERS: ADMIT Internal Medicine; ATTEND Internal Medicine
DX: R07.9 Chest pain, unspecified (principal); I11.0 Hypertensive heart disease with heart failure; I50.30 Unspecified diastolic (congestive) heart failure; I08.1 Rheumatic disorders of both mitral and tricuspid valves; I44.1 Atrioventricular block, second degree; E66.9 Obesity, unspecified; Z68.31 Body mass index [BMI] 31.0-31.9, adult; Z86.73 Personal history of transient ischemic attack (TIA), and cerebral infarction without residual deficits; Z95.0 Presence of cardiac pacemaker; Z79.82 Long term (current) use of aspirin; Z79.899 Other long term (current) drug therapy
CPT/HCPCS: 36415; 36416; 71045; 78452; 80053; 80306; 83735; 84484; 85025; 85379; 93005; 93010; 93017; 93306; 94760; 96372; 96374; A9502; G0378; J1650; J2270; J2785

== ENCOUNTER 2023-12-31 06:11 | Inpatient (IN) | payer BC ==
[2023-12-31 06:43] LABS: #Eosinphils 0.3 thou/uL (0.0-0.7); #Monocytes 0.6 thou/uL (0.11-0.59); #Neutrophils 5.2 thou/uL (1.40-6.50); %Basophils 0.3 % (0.0-1.0); %Eosinophils 3.8 % (0.0-10.0); %Lymphocytes 31.7 % (21.0-51.0); %Monocytes 6.1 % (0.0-10.0); %Neutrophils 57.8 % (42.0-75.0); Hematocrit 38.9 % (42.0-52.0); Hemoglobin 12.4 g/dL (14.0-18.0); Mean Corpuscular HGB CONC 31.9 g/dL (32.0-36.0); Mean Corpuscular Hemoglobin 28.5 pg (27.0-31.0); Mean Corpuscular Volume 89.4 fl (78.0-98.0); Mean Platelet Volume 11.2 fL (7.4-10.4); Platelet Count 220 10x3/uL (130-400); RBC Distribution Width 14.6 % (11.5-14.5); Red Blood Cell (RBC) Count 4.35 mill/uL (4.70-6.10)
[2023-12-31 07:04] LABS: ALT (SGPT) 20 U/L (8-55); AST (SGOT) 21 U/L (5-34); Albumin 4.1 g/dL (3.5-5.0); Alkaline Phosphatase 57 U/L (40-110); Anion Gap 9 mmol/L (10-20); BUN (Urea Nitrogen) 12 mg/dL (8.4-25.7); Bilirubin, Total 0.7 mg/dL (0.2-1.2); Calc. Creatinine Clearance 0 mL/min (70-130); Calcium 9.2 mg/dL (7.8-10.44); Carbon Dioxide 29 mmol/L (22-29); Chloride 104 mmol/L (98-107); Estimated GFR 87; Globulin 2.8 g/dL (2.4-3.5); Glucose 102 mg/dL (70-105); Lipase 16 U/L (8-78); Potassium 4.2 mmol/L (3.5-5.1); Protein, Total 6.9 g/dL (6.0-8.3); Sodium 138 mmol/L (136-145)
[2023-12-31] MEDS ORDERED: Ondansetron ODT 4 MG TAB ONE (08:24)
[2023-12-31 09:11] LABS: Bacteria/HPF None Seen HPF (None Seen); Bilirubin Negative (Negative); Blood, Urine Negative (Negative); Clarity Clear (Clear); Glucose, Urine (Dipstick) Normal (Negative); Ketone, Urine Negative (Negative); Leukocyte Negative Leu/uL (Negative); Nitrite Negative (Negative); Protein, Urine (Dipstick) Negative (Neg-Trace); RBC/HPF None Seen HPF (0-3); Specific Gravity, Urine 1.028 (1.002-1.036); Squamous Epithelial 0-3 HPF (0-3); Urobilinogen Normal mg/dL (Less than 2); WBC/HPF None Seen HPF (0-3); pH, Urine 5.5 (5.0-9.0)
[2023-12-31] MEDS ORDERED: PROPOFOL 20 ML ONE (10:21)
[2023-12-31] MEDS ORDERED: SUCCINYLCHOLINE/SOD CL,ISO/PF 200 MG/10 ML SYRINGE FS ONE (10:21)
[2023-12-31] MEDS ORDERED: Ondansetron PF 4 MG/2 ML Vial ONE (10:21)
[2023-12-31] MEDS ORDERED: Lidocaine 1% PF 5 ML VIAL ONE (10:21)
[2023-12-31] MEDS ORDERED: PHENYLEPHRINE-NS 100 MCG/ML 10 ML SYRINGE ONE (10:50)
[2023-12-31] MEDS ORDERED: Dexamethasone 20 MG/5 ML VIAL ONE (10:50)
[2023-12-31] MEDS ORDERED: Ondansetron HCl/PF 4 MG/2 ML Vial IVP PRN (11:22)
[2023-12-31] MEDS ORDERED: Meperidine HCl/PF 25 MG/ML VIAL SLOW IVP PRN (11:22)
[2023-12-31] MEDS ORDERED: Promethazine HCl 25 MG/ML VIAL IM PRN (11:22)
[2023-12-31] MEDS ORDERED: Morphine Sulfate 2 MG/ML SYRINGE SLOW IVP PRN (11:22)
[2023-12-31] MEDS ORDERED: HYDROmorphone 2 MG/ML VIAL SLOW IVP PRN (11:22)
[2023-12-31] MEDS ORDERED: EPINEPHrine 1 MG/10 ML Abboject SYRINGE ONE (11:34)
[2023-12-31] MEDS ORDERED: Ondansetron ODT 4 MG TAB PO PRN (12:33)
[2023-12-31] MEDS ORDERED: Ondansetron PF 4 MG/2 ML Vial IVP PRN (12:33)
[2023-12-31] MEDS ORDERED: Morphine 2 MG/ML VIAL SLOW IVP PRN (12:35)
[2023-12-31] MEDS ORDERED: fentaNYL 50 mcg/mL 1 mL Vial ONE (13:00)
[2023-12-31] MEDS: Sodium Chloride 0.9% 1,000 ML IV SCH (17:18)
[2023-12-31] MEDS: Carvedilol 6.25 MG TAB PO SCH (17:19)
[2023-12-31 17:32] VITALS: BMI 30.7
[2023-12-31 20:14] LABS: Hematocrit 34.3 % (42.0-52.0); Hemoglobin 10.9 g/dL (14.0-18.0)
[2024-01-01 04:18] LABS: #Monocytes 0.6 thou/uL (0.11-0.59); %Basophils 0.1 % (0.0-1.0); %Eosinophils 0.1 % (0.0-10.0); %Lymphocytes 11.1 % (21.0-51.0); %Monocytes 4.8 % (0.0-10.0); %Neutrophils 83.6 % (42.0-75.0); Hematocrit 32.4 % (42.0-52.0); Hemoglobin 10.4 g/dL (14.0-18.0); Mean Corpuscular HGB CONC 32.1 g/dL (32.0-36.0); Mean Corpuscular Hemoglobin 28.1 pg (27.0-31.0); Mean Corpuscular Volume 87.6 fl (78.0-98.0); Mean Platelet Volume 11.4 fL (7.4-10.4); Platelet Count 230 10x3/uL (130-400); RBC Distribution Width 14.6 % (11.5-14.5); White Blood Cell (WBC) Count 13.2 10x3/uL (4.8-10.8)
[2024-01-01 04:32] LABS: Anion Gap 12 mmol/L (10-20); BUN (Urea Nitrogen) 11 mg/dL (8.4-25.7); Calc. Creatinine Clearance 122 mL/min (70-130); Calcium 8.8 mg/dL (7.8-10.44); Carbon Dioxide 24 mmol/L (22-29); Chloride 106 mmol/L (98-107); Estimated GFR 104; Glucose 120 mg/dL (70-105); Potassium 4.6 mmol/L (3.5-5.1); Sodium 137 mmol/L (136-145)
[2024-01-01] MEDS: Losartan 25 MG TAB PO SCH (09:28)
[2024-01-01] MEDS: Aspirin 81 mg Enteric Coated Tablet PO SCH (09:28)
[2024-01-01 13:06] LABS: Hematocrit 30.5 % (42.0-52.0); Hemoglobin 9.5 g/dL (14.0-18.0)
[2024-01-02 09:13] LABS: #Eosinphils 0.2 thou/uL (0.0-0.7); #Monocytes 0.6 thou/uL (0.11-0.59); #Neutrophils 7.1 thou/uL (1.40-6.50); %Basophils 0.3 % (0.0-1.0); %Eosinophils 1.9 % (0.0-10.0); %Lymphocytes 32.3 % (21.0-51.0); Hematocrit 28.8 % (42.0-52.0); Hematocrit 29.2 % (42.0-52.0); Hemoglobin 9.1 g/dL (14.0-18.0); Hemoglobin 9.2 g/dL (14.0-18.0); Mean Corpuscular HGB CONC 31.5 g/dL (32.0-36.0); Mean Corpuscular Hemoglobin 28.5 pg (27.0-31.0); Mean Corpuscular Volume 90.4 fl (78.0-98.0); Mean Platelet Volume 11.4 fL (7.4-10.4); Platelet Count 202 10x3/uL (130-400); RBC Distribution Width 15.2 % (11.5-14.5); Red Blood Cell (RBC) Count 3.23 mill/uL (4.70-6.10); White Blood Cell (WBC) Count 11.8 10x3/uL (4.8-10.8)
[2024-01-02 13:44] LABS: Hematocrit 28.6 % (42.0-52.0); Hemoglobin 9.2 g/dL (14.0-18.0)
[2024-01-02 15:50] VITALS: BP 150/85; TEMP 97.1
== END 2024-01-02 16:00 | disposition home or self-care (01) | DRG 920 ==
LOC: ERS 06:11 → ERHOLD 09:46 → OBSVTOIN 12:33 → SURG A 16:59
PROVIDERS: ADMIT Internal Medicine; ATTEND Family Medicine
PROC: 0W3P8ZZ Control Bleeding in Gastrointestinal Tract, Via Natural or Artificial Opening Endoscopic (ICD-10-PCS; principal; 2023-12-31)
PROC: 3E033XZ Introduction of Vasopressor into Peripheral Vein, Percutaneous Approach (ICD-10-PCS; 2023-12-31)
DX: K91.840 Postprocedural hemorrhage of a digestive system organ or structure following a digestive system procedure (principal); D62 Acute posthemorrhagic anemia; I50.32 Chronic diastolic (congestive) heart failure; F32.A Depression, unspecified; I44.1 Atrioventricular block, second degree; I11.0 Hypertensive heart disease with heart failure; Z98.890 Other specified postprocedural states; Z79.899 Other long term (current) drug therapy; Z79.82 Long term (current) use of aspirin; Z86.73 Personal history of transient ischemic attack (TIA), and cerebral infarction without residual deficits; Z95.0 Presence of cardiac pacemaker
CPT/HCPCS: 36415; 36416; 74177; 80048; 80053; 81001; 83690; 85025; 86850; 86900; 86901; J0171; J1100; J2405; J2704; J3010; J7050; Q0162

== ENCOUNTER 2024-03-29 09:00 | Emergency (ER) | payer BC ==
[2024-03-29] MEDS ORDERED: Ketorolac Tromethamine 30 MG (1 mL) VIAL ONE (09:38)
[2024-03-29] MEDS ORDERED: Dexamethasone 10 MG/ML VIAL ONE (09:38)
== END 2024-03-29 10:03 | disposition home or self-care (01) ==
LOC: ERS 09:00
DX: M75.41 Impingement syndrome of right shoulder (principal); I10 Essential (primary) hypertension; Z79.899 Other long term (current) drug therapy
CPT/HCPCS: 96372; J1100; J1885

== ENCOUNTER 2024-06-05 15:23 | Emergency (ER) | payer BC ==
[~2024-06-05 15:23] MED LIST: Iopamidol-370 76% 500 ML MDV (1 ML CHARGE) ONE
[2024-06-05] MEDS ORDERED: Ondansetron ODT 4 MG TAB ONE (17:45)
[2024-06-05 17:49] LABS: %Lymphocytes 26.8 % (21.0-51.0); %Neutrophils 58.9 % (42.0-75.0); Hematocrit 44.2 % (42.0-52.0); Hemoglobin 14.1 g/dL (14.0-18.0); Mean Corpuscular HGB CONC 31.9 g/dL (32.0-36.0); Mean Corpuscular Hemoglobin 27.4 pg (27.0-31.0); Mean Corpuscular Volume 85.8 fL (78.0-98.0); Mean Platelet Volume 11.4 fL (7.4-10.4); Platelet Count 249 10x3/uL (130-400); RBC Distribution Width 16.6 % (11.5-14.5); Red Blood Cell (RBC) Count 5.15 mill/uL (4.70-6.10)
[2024-06-05 17:50] LABS: #Basophils Less than 0.03 10x3/uL (0.0-0.2); %Basophils 0.3 % (0.0-1.0); %Eosinophils 5.8 % (0.0-10.0)
[2024-06-05] MEDS ORDERED: Ketorolac Tromethamine 30 MG (1 mL) VIAL ONE (17:55)
[2024-06-05 18:11] LABS: ALT (SGPT) 20 U/L (8-55); AST (SGOT) 24 U/L (5-34); Alkaline Phosphatase 63 U/L (40-110); Anion Gap 12 mmol/L (10-20); BUN (Urea Nitrogen) 11 mg/dL (8.4-25.7); Bilirubin, Total 0.8 mg/dL (0.2-1.2); Calc. Creatinine Clearance 0 mL/min (70-130); Calcium 9.4 mg/dL (7.8-10.44); Carbon Dioxide 25 mmol/L (22-29); Chloride 104 mmol/L (98-107); Estimated GFR 89; Globulin 3.4 g/dL (2.4-3.5); Glucose 83 mg/dL (70-105); Lipase 12 U/L (8-78); Potassium 4.4 mmol/L (3.5-5.1); Protein, Total 7.4 g/dL (6.0-8.3); Sodium 137 mmol/L (136-145)
[2024-06-05 19:52] LABS: Bacteria/HPF None Seen HPF (None Seen); Bilirubin Negative (Negative); Blood, Urine Negative (Negative); CAUTI Indications for Culture Pelvic or flank pain; Clarity Clear (Clear); Glucose, Urine (Dipstick) Normal (Negative); Ketone, Urine Negative (Negative); Leukocyte Negative Leu/uL (Negative); Nitrite Negative (Negative); Protein, Urine (Dipstick) 10 mg/dL (Neg-Trace); RBC/HPF 0-3 HPF (0-3); Specific Gravity, Urine 1.016 (1.002-1.036); Squamous Epithelial 0-3 HPF (0-3); Urobilinogen Normal mg/dL (Less than 2); WBC/HPF 0-3 HPF (0-3); pH, Urine 5.5 (5.0-9.0)
[2024-06-05 19:56] LABS: Urine Culture Reflex No No
[2024-06-05 20:31] LABS: Influenza A by NAA Not Detected (NotDetected); Influenza B by NAA Not Detected (NotDetected); SARS-CoV-2 NAA Rapid Test DETECTED (NotDetected)
== END 2024-06-05 21:03 | disposition home or self-care (01) ==
LOC: ERS 15:23
DX: U07.1 COVID-19 (principal); I10 Essential (primary) hypertension; Z86.73 Personal history of transient ischemic attack (TIA), and cerebral infarction without residual deficits
CPT/HCPCS: 36415; 70496; 70498; 80053; 81001; 83690; 85025; 86141; 96372; J1885; Q0162; Q9967

== ENCOUNTER 2024-08-05 09:09 | Outpatient (CLI) | payer BC | END 2024-08-05 09:10 | disposition home or self-care (01) | LOC: ULT 09:09 | DX: K42.9 Umbilical hernia without obstruction or gangrene (principal); R93.5 Abnormal findings on diagnostic imaging of other abdominal regions, including retroperitoneum | CPT/HCPCS: 76700 ==

== ENCOUNTER 2024-08-18 07:22 | Emergency (ER) | payer BC | END 2024-08-18 08:34 | disposition home or self-care (01) | LOC: ERS 07:22 | DX: K42.9 Umbilical hernia without obstruction or gangrene (principal); I10 Essential (primary) hypertension; Z95.0 Presence of cardiac pacemaker; Z86.73 Personal history of transient ischemic attack (TIA), and cerebral infarction without residual deficits | CPT/HCPCS: 74018; 99283 ==

== ENCOUNTER 2025-07-10 23:48 | Inpatient (IN) | payer BC ==
[2025-07-11 03:30] LABS: #Basophils 0.04 10x3/uL (0.0-0.2); #Eosinophils 0.36 10x3/uL (0.0-0.7); #Monocytes 0.61 10x3/uL (0.11-0.59); #Neutrophils 5.61 10x3/uL (1.40-6.50); %Basophils 0.4 % (0.0-1.0); %Eosinophils 3.7 % (0.0-10.0); %Lymphocytes 31.6 % (21.0-51.0); %Monocytes 6.3 % (0.0-10.0); %Neutrophils 57.7 % (42.0-75.0); Hematocrit 43.3 % (42.0-52.0); Hemoglobin 13.8 g/dL (14.0-18.0); Mean Corpuscular Hemoglobin 27.4 pg (27.0-31.0); Mean Corpuscular Volume 85.9 fL (78.0-98.0); Platelet Count 256 10x3/uL (130-400); Red Blood Cell (RBC) Count 5.04 mill/uL (4.70-6.10); White Blood Cell (WBC) Count 9.72 10x3/uL (4.8-10.8)
[2025-07-11 04:19] LABS: ALT (SGPT) 15 U/L (Less than 45); AST (SGOT) 25 U/L (11-34); Albumin 3.9 g/dL (3.1-4.5); Alkaline Phosphatase 66 U/L (40-110); Anion Gap 14 mmol/L (10-20); BUN (Urea Nitrogen) 11 mg/dL (8.4-25.7); Bilirubin, Total 0.4 mg/dL (0.3-1.2); Calc. Creatinine Clearance 0 mL/min (70-130); Calcium 9.4 mg/dL (7.8-10.44); Carbon Dioxide 28 mmol/L (22-29); Chloride 103 mmol/L (98-107); Globulin 3.2 g/dL (2.4-3.5); Glucose 98 mg/dL (70-105); Potassium 4.5 mmol/L (3.5-5.1); Sodium 140 mmol/L (136-145)
[2025-07-11] MEDS ORDERED: Aspirin 325 MG TAB ONE (09:51)
[2025-07-11] MEDS ORDERED: Iopamidol 370 76% 100 ML VIAL ONE (10:28)
[2025-07-11] MEDS ORDERED: Ondansetron PF 4 MG/2 ML Vial IVP PRN (10:39)
[2025-07-11] MEDS ORDERED: hydrALAZINE 20 MG/ML VIAL SLOW IVP PRN (10:39)
[2025-07-11] MEDS ORDERED: Senokot S 8.6-50 MG TAB PO PRN (10:39)
[2025-07-11] MEDS ORDERED: Melatonin 3 MG TAB PO PRN (10:39)
[2025-07-11] MEDS ORDERED: Electrolyte Replacement Protocol 1 EACH FS SCH (10:45)
[2025-07-11 13:53] VITALS: BMI 32.6
[2025-07-11 14:28] LABS: INR-International Normal Ratio 1.2; PTT 37.9 sec (22.9-36.1); Prothrombin Time 15.3 sec (12.0-14.7)
[2025-07-11 14:44] LABS: D-Dimer Test Less than 0.27 mcg/mL (0.27-0.43)
[2025-07-11 15:17] LABS: Magnesium 2.1 mg/dL (1.6-2.6)
[2025-07-12 04:55] LABS: #Basophils 0.04 10x3/uL (0.0-0.2); #Eosinophils 0.37 10x3/uL (0.0-0.7); #Monocytes 0.63 10x3/uL (0.11-0.59); #Neutrophils 6.68 10x3/uL (1.40-6.50); %Basophils 0.4 % (0.0-1.0); %Eosinophils 3.8 % (0.0-10.0); %Lymphocytes 20.9 % (21.0-51.0); %Monocytes 6.4 % (0.0-10.0); %Neutrophils 68.1 % (42.0-75.0); Hematocrit 43.4 % (42.0-52.0); Hemoglobin 14.0 g/dL (14.0-18.0); Mean Corpuscular Hemoglobin 27.7 pg (27.0-31.0); Mean Corpuscular Volume 85.9 fL (78.0-98.0); Platelet Count 244 10x3/uL (130-400); Red Blood Cell (RBC) Count 5.05 mill/uL (4.70-6.10); White Blood Cell (WBC) Count 9.81 10x3/uL (4.8-10.8)
[2025-07-12 05:39] LABS: Anion Gap 13 mmol/L (10-20); BUN (Urea Nitrogen) 10 mg/dL (8.4-25.7); Calc. Creatinine Clearance 131 mL/min (70-130); Calcium 9.5 mg/dL (7.8-10.44); Carbon Dioxide 25 mmol/L (22-29); Cardiac Risk 5.3 (Less than 4.5); Chloride 104 mmol/L (98-107); Cholesterol 185 mg/dl (< 200 Desired); Glucose 102 mg/dL (70-105); HDL Cholesterol 35 mg/dL (>60 Neg Risk); LDL Cholesterol, Calculated 121 mg/dL; Potassium 4.1 mmol/L (3.5-5.1); Sodium 138 mmol/L (136-145); Triglycerides 147 mg/dL (Less than 150)
[2025-07-12] MEDS: Enoxaparin 40 MG (0.4 mL) SYRINGE SC SCH (08:20)
[2025-07-12] MEDS: Aspirin Chewable 81 MG TAB PO SCH (08:21)
[2025-07-12] MEDS: Nitroglycerin 0.4 MG TAB (25 Tab Bottle) SL PRN (10:25)
[2025-07-12] MEDS: Acetaminophen 325 MG TAB PO PRN (10:39)
[2025-07-12 12:20] LABS: EliA APS New Method **** NEW METHOD ****
[2025-07-12] MEDS: Lidocaine 2% Viscous Solution 10 ML, Aluminum & Magnesium Hydroxide 30 ML SSW SCH (13:51)
[2025-07-12 17:19] VITALS: BP 144/91; TEMP 97.5
== END 2025-07-12 19:06 | disposition home or self-care (01) | DRG 69 ==
LOC: ERS 23:48 → OBS 07-11 09:34 → OBSVTOIN 07-12 16:33
PROVIDERS: ADMIT Family Medicine; ATTEND Internal Medicine
DX: G45.9 Transient cerebral ischemic attack, unspecified (principal); I50.32 Chronic diastolic (congestive) heart failure; E78.5 Hyperlipidemia, unspecified; I11.0 Hypertensive heart disease with heart failure; I44.0 Atrioventricular block, first degree; R07.9 Chest pain, unspecified; M19.90 Unspecified osteoarthritis, unspecified site; F32.A Depression, unspecified; F41.9 Anxiety disorder, unspecified; Z95.0 Presence of cardiac pacemaker; Z79.82 Long term (current) use of aspirin; Z79.899 Other long term (current) drug therapy
CPT/HCPCS: 36415; 70496; 70498; 70551; 71045; 80048; 80053; 80061; 83090; 83735; 83880; 84443; 84484; 85025; 85300; 85303; 85306; 85307; 85598; 85610; 85730; 86147; 93005; 93010; 93306; 96372; G0378; J1650; Q9967

== ENCOUNTER 2025-10-06 18:57 | Emergency (ER) | payer BC ==
[2025-10-06 20:53] LABS: #Basophils 0.03 10x3/uL (0.0-0.2); #Eosinophils 0.33 10x3/uL (0.0-0.7); #Monocytes 0.65 10x3/uL (0.11-0.59); #Neutrophils 6.56 10x3/uL (1.40-6.50); %Basophils 0.3 % (0.0-1.0); %Eosinophils 3.3 % (0.0-10.0); %Lymphocytes 23.5 % (21.0-51.0); %Monocytes 6.5 % (0.0-10.0); %Neutrophils 66.1 % (42.0-75.0); Hematocrit 39.0 % (42.0-52.0); Hemoglobin 12.4 g/dL (14.0-18.0); Mean Corpuscular Hemoglobin 27.3 pg (27.0-31.0); Mean Corpuscular Volume 85.9 fL (78.0-98.0); Platelet Count 239 10x3/uL (130-400); Red Blood Cell (RBC) Count 4.54 mill/uL (4.70-6.10); White Blood Cell (WBC) Count 9.93 10x3/uL (4.8-10.8)
[2025-10-06 21:08] LABS: ALT (SGPT) 14 U/L (Less than 45); AST (SGOT) 16 U/L (11-34); Albumin 3.9 g/dL (3.1-4.5); Alkaline Phosphatase 69 U/L (40-110); Anion Gap 12 mmol/L (10-20); BUN (Urea Nitrogen) 14 mg/dL (8.4-25.7); Bilirubin, Total 0.5 mg/dL (0.3-1.2); Calc. Creatinine Clearance 0 mL/min (70-130); Calcium 9.0 mg/dL (7.8-10.44); Carbon Dioxide 26 mmol/L (22-29); Chloride 106 mmol/L (98-107); Globulin 2.7 g/dL (2.4-3.5); Glucose 179 mg/dL (70-105); Potassium 3.9 mmol/L (3.5-5.1); Sodium 140 mmol/L (136-145)
== END 2025-10-07 00:28 | disposition home or self-care (01) ==
LOC: ERS 18:57
DX: M54.50 Low back pain, unspecified (principal); I10 Essential (primary) hypertension; Z86.73 Personal history of transient ischemic attack (TIA), and cerebral infarction without residual deficits; Z79.899 Other long term (current) drug therapy; Z79.82 Long term (current) use of aspirin
CPT/HCPCS: 72128; 72131; 80053; 85025; 86141; 96374

== ENCOUNTER 2025-10-12 22:08 | Emergency (ER) | payer BC | END 2025-10-13 00:32 | disposition home or self-care (01) | LOC: ERS 22:08 | DX: G89.29 Other chronic pain (principal); M54.50 Low back pain, unspecified; I10 Essential (primary) hypertension | CPT/HCPCS: 99283 ==